=== PATIENT | male | born 1965 | race Caucasian/White ===

== ENCOUNTER 2020-02-28 20:30 | Emergency (ER) | payer MEDICAID, OTHER ==
[~2020-02-28] VITALS: Ht 180.3 cm; Wt 63.5 kg
[2020-02-28 20:36] VITALS: BP 121/62
--- NOTE | 2020-02-28 20:36 | NUR ---
PT MICHELLE BLS. TAKEN TO BED 3
--- NOTE | 2020-02-28 21:16 | NUR ---
Dr. Pierre examining patient.
[2020-02-28] MEDS ORDERED: MULTIVITAMIN-12 10 ML, THIAMINE 100 MG, FOLIC ACID 1 MG, MAGNESIUM SULFATE 50% 2,000 MG... IV SCH ×5 (21:25)
--- NOTE | 2020-02-28 21:34 | NUR ---
PT WAS FOUND OUTSIDE OF A 7-11 UNRESPONSIVE. PT STATES HE DRANK "ALOT" TODAY, UNABLE TO SPECIFY HOW MUCH. STATES HE DRINKS VODKA AND BEER DAILY. PT HAS SLURRED SPEECH, UNSTEADY ON HIS FEET, AND UNABLE TO RECALL CERTASIN EVENTS. [facility] 13. PT MORE RESPONSIVE UPON ARRIVAL TO ED BY PARAMEDICS. BED PLACED IN LOWEST POSITION AND SIDERAIL UP X 2 FOR PATIENT SAFETY ALLERGY - PCN HX - ALCOHOLISM (PER PT)
--- NOTE | 2020-02-28 21:41 | NUR ---
CONFISCATED PATIENT BOTTLE OF ALCOHOL HE HAD IN HIS POCKET. PLACED IN BELONGINGS BAG AND PLACED UP.
[2020-02-28] MEDS ORDERED: MULTIVITAMIN-12 10 ML VIAL IV ONE (21:44)
[2020-02-28] MEDS ORDERED: THIAMINE 200 MG/2 ML VIAL ONE (21:45)
[2020-02-28] MEDS ORDERED: FOLIC ACID 5 MG/ML SYR ONE (21:46)
[2020-02-28] MEDS ORDERED: MAG SULF 2000 MG/WATER PREMIX 50 ML IV ONE (21:48)
--- NOTE | 2020-02-28 23:03 | NUR ---
PT SLEEPING, RESPIRATIONS REGULAR EVEN AND UNLABORED. IV FLUIDS CONTINUE TO INFUSE
--- NOTE | 2020-02-29 00:04 | NUR ---
pt sleeping, arousable to verbal stimuli. iv fluids continue infusing. respirations regular, unlabored, and even
--- NOTE | 2020-02-29 00:15 | NUR ---
Note keith in EDM - 02/29/20 at 0031 by [email or web address] Patient discharged with v/s stable. Written and verbal after care instructions given and explained. Patient alert, oriented and verbalized understanding of instructions. All questions addressed prior to discharge. ID band removed. Patient advised to follow up with PMD. Rx of [] given. Opportunity to ask questions provided and answered.
--- NOTE | 2020-02-29 00:30 | NUR ---
PT ROADTESTED TO SEE IF HE CAN AMBULATE BY HIMSELF, UNABLE TO WALK WITHOUR ASSISTANCE. PT PLACED BACK IN BED. MD [place] AWARE. WILL CONTINUE TO MONITOR PT
--- NOTE | 2020-02-29 02:50 | NUR ---
PT REMAINS SLEEPING BUT AROUSABLE, STILL HAS SLURRED SPECH. V/S REMAIN WNL. RESPIRATIONS REGULAR, EVEN, AND UNLABORED.
--- NOTE | 2020-02-29 05:00 | NUR ---
SPOKE TO PATIENT, SUGGESTED WE TRY AND WALK AGAIN. PT STATES HE JUST TRIED GETTING UP BUT FELL BACKWARDS ONTO THE BED. WILL CONTINUE TO MONITOR PT.
--- NOTE | 2020-02-29 05:28 | NUR ---
SPOKE TO ELIZABETH, PT'S FRIEND/FAMILY LOOKING FOR HIM. STATES HE WENT TO THE STORE LAST NIGHT AND NEVER CAME HOME. ELIZABETH STATES SHE IS NOT ABLE TO PICK HIM UP BECAUSE SHE HAS NO TRANSPORTATION. SHE STATES HE SHOULD HAVE MONEY ON HIM TO GET A RIDE HOME.
[2020-02-29 06:26] VITALS: BP 113/62
--- NOTE | 2020-02-29 06:26 | NUR ---
Patient discharged with v/s stable. Written and verbal after care instructions given and explained. Patient verbalized understanding. Ambulatory with steady gait. All questions addressed prior to discharge. Advised to follow up with PMD.
--- NOTE | 2020-02-29 06:31 | NUR ---
PT WAITING FOR BUS PASS FROM [facility]UR[facility]
== END 2020-02-29 06:26 | disposition home or self-care (01) ==
LOC: MED 20:30
DX: F10.129 Alcohol abuse with intoxication, unspecified (principal)
CPT/HCPCS: 96365; 99283; A9153; J3411; J3475; J3490